=== PATIENT | male | born 1935 | race Two or more races ===

== ENCOUNTER 2024-03-08 20:45 | Inpatient (IN) | payer OTHER ==
[~2024-03-08] VITALS: Ht 167.6 cm; Wt 72.6 kg
[2024-03-09 00:27] LABS: HEMATOCRIT 41.3 % (39.0-48.0); HEMOGLOBIN 13.7 g/dL (13-16.00); MEAN CELL VOLUME 80.8 fL (80.0-100.00); MEAN CORPUSCULAR HEMOGLOBIN 26.9 pg (27.00-32.0); MEAN CORPUSCULAR HGB CONC 33.3 g/dl (32.0-36.0); RED BLOOD COUNT 5.11 M/uL (4.00-6.00); RED CELL DISTRIBUTION WIDTH 14.4 % (11.5-14.5)
[2024-03-09 00:30] LABS: PLATELET COUNT 128 K/uL (150-450)
[2024-03-09 00:31] LABS: ERYTHROCYTE SEDIMENTATION RATE 56 mm/hr
[2024-03-09 00:42] LABS: INR 1.06; PARTIAL THROMBOPLASTIN TIME 33.8 SECONDS (22.0-34.0); PROTHROMBIN TIME 11.1 SECONDS (9.0-11.5)
[2024-03-09 00:46] LABS: ALBUMIN 2.8 gm/dL (3.4-5.0); BILIRUBIN TOTAL 0.5 mg/dL (0.3-1.2); CALCIUM 8.6 mg/dL (8.5-10.1); CREATININE SERUM 1.15 mg/dL (0.70-1.30); GFR 60.15; POTASSIUM 4.44 mEq/L (3.5-5.1); TOTAL PROTEIN 6.8 gm/dL (6.4-8.2)
[2024-03-09 00:49] LABS: PH,URINE 5.5 (5.0-8.0); URINE APPEARANCE Clear; URINE BILIRRUBIN Negative (NEGATIVE); URINE BLOOD Negative; URINE COLOR Dark Yellow; URINE GLUCOSE Negative (NEGATIVE); URINE LEUKOCYTE Negative; URINE NITRATE Negative; URINE PROTEIN 30 (NEGATIVE); URINE UROBILINOGEN 0.2 E.U./dl
[2024-03-09 00:52] LABS: URINE BACTERIA 13.8 uL (0.0-1933); URINE EPITHELIAL CELLS 4.7 uL (0.0-38.8); URINE RBC 13.8 uL (0.0-20.8)
[2024-03-09 01:05] LABS: C-REACTIVE PROTEIN 5.67 MG/DL (0.00-0.29)
[2024-03-09 02:39] LABS: ABG PH 7.466 (7.35-7.45); ABG pCO2 34.5 mmHg (35-45); BASE EXCESS 1.1 mmol/l; BICARBONATE 24.3 mmol/l (23-25); Tco2 25.4 mmol/l; allen test SATISFACTORY; o2 21 %; puncture site RADIAL RIGHT
[2024-03-09] MEDS ORDERED: VASOTEC20 MG PO (02:42)
[2024-03-09] MEDS ORDERED: LEVALBUTEROL HCL 1.25 MG/3 ML SOLUTION IH SCH ×3 (05:45→17:00)
[2024-03-09] MEDS ORDERED: LEVALBUTEROL HCL 1.25 MG/3 ML SOLUTION IH ONE ×3 (05:59→08:31)
[2024-03-09] MEDS ORDERED: LEVALBUTEROL HCL 1.25 MG/3 ML SOLUTION IH STA (07:24)
[2024-03-09] MEDS ORDERED: METHYLPREDNISOLONE SOD SUCC 125 MG VIAL IV STA (07:25)
[2024-03-09] MEDS ORDERED: METHYLPREDNISOLONE SOD SUCC 40 MG VIAL ONE (07:30)
[2024-03-09] MEDS ORDERED: DEXAMETHASONE SODIUM PHOSPHATE 4 MG/ML VIAL IV SCH (11:07)
[2024-03-09] MEDS ORDERED: ENOXAPARIN SODIUM 40 MG/0.4 ML SYRINGE SUBCUTANEO SCH (11:07)
[2024-03-09] MEDS ORDERED: ZINC SULFATE 220 MG CAPSULE PO SCH (11:08)
[2024-03-09] MEDS ORDERED: FAMOTIDINE/PF 20 MG/10 ML SYRINGE IV PUSH SCH (11:12)
[2024-03-09] MEDS ORDERED: ENALAPRIL MALEATE 20 MG TABLET PO SCH (11:13)
[2024-03-09] MEDS ORDERED: ENALAPRILAT DIHYDRATE 1.25 MG/ML VIAL IV PRN (11:15)
[2024-03-09] MEDS ORDERED: AZITHROMYCIN 500 MG in DEXTROSE 5 % IN WATER 250 ML IV SCH (12:00)
[2024-03-09] MEDS ORDERED: REMDESIVIR 100 MG VIAL IV ONE (13:00)
[2024-03-09] MEDS ORDERED: ASCORBIC ACID 500 MG TABLET PO SCH (13:00)
[2024-03-09] MEDS ORDERED: DEXAMETHASONE SODIUM PHOSPHATE 4 MG/ML VIAL ONE (14:39)
[2024-03-09] MEDS ORDERED: AZITHROMYCIN 500 MG VIAL IV ONE (14:40)
[2024-03-09] MEDS ORDERED: CEFTRIAXONE SODIUM 2,000 MG VIAL ONE (14:40)
[2024-03-09] MEDS ORDERED: FAMOTIDINE/PF 20 MG/2 ML VIAL ONE (14:40)
[2024-03-09] MEDS ORDERED: ENOXAPARIN SODIUM 40 MG/0.4 ML SYRINGE SUBCUTANEO ONE (14:40)
[2024-03-09] MEDS ORDERED: ASCORBIC ACID 500 MG TABLET PO ONE (16:44)
[2024-03-09] MEDS ORDERED: CEFTRIAXONE SODIUM 2,000 MG VIAL IV SCH (17:00)
[2024-03-09 17:14] LABS: ALBUMIN 2.6 gm/dL (3.4-5.0); BILIRUBIN TOTAL 0.44 mg/dL (0.3-1.2); CALCIUM 8.7 mg/dL (8.5-10.1); CREATININE SERUM 1.22 mg/dL (0.70-1.30); GFR 56.19; GLOBULINA 4.6 G/DL (2.4-3.5); POTASSIUM 4.64 mEq/L (3.5-5.1); TOTAL PROTEIN 7.2 gm/dL (6.4-8.2)
[2024-03-09 17:17] LABS: C-REACTIVE PROTEIN 5.79 MG/DL (0.00-0.29)
[2024-03-09 17:21] LABS: D DIMER 0.66 MG/L
[2024-03-09 17:47] LABS: FERRITIN 948.7 NG/ML (26-388)
[2024-03-09] MEDS ORDERED: REMDESIVIR 100 MG VIAL IV NR (18:00)
[2024-03-09] MEDS ORDERED: MELATONIN 5 MG TABLET PO SCH (21:00)
[2024-03-10 08:25] LABS: HEMOGLOBIN 13.4 g/dL (13-16.00); MEAN CELL VOLUME 79.3 fL (80.0-100.00); MEAN CORPUSCULAR HEMOGLOBIN 26.5 pg (27.00-32.0); MEAN CORPUSCULAR HGB CONC 33.4 g/dl (32.0-36.0); PLATELET COUNT 144 K/uL (150-450); RED BLOOD COUNT 5.05 M/uL (4.00-6.00); RED CELL DISTRIBUTION WIDTH 14.6 % (11.5-14.5)
[2024-03-10 09:05] LABS: ALBUMIN 2.6 gm/dL (3.4-5.0); BILIRUBIN TOTAL 0.33 mg/dL (0.3-1.2); CALCIUM 8.4 mg/dL (8.5-10.1); CREATININE SERUM 1.01 mg/dL (0.70-1.30); GFR 69.88; GLOBULINA 3.6 G/DL (2.4-3.5); POTASSIUM 4.28 mEq/L (3.5-5.1); TOTAL PROTEIN 6.2 gm/dL (6.4-8.2)
[2024-03-10] MEDS ORDERED: REMDESIVIR 100 MG VIAL IV SCH (17:00)
[2024-03-10] MEDS ORDERED: FAMOTIDINE/PF 20 MG/2 ML VIAL IV SCH (21:00)
[2024-03-11 07:07] LABS: MEAN CORPUSCULAR HEMOGLOBIN 26.3 pg (27.00-32.0); MEAN CORPUSCULAR HGB CONC 33.3 g/dl (32.0-36.0); PLATELET COUNT 209 K/uL (150-450); RED BLOOD COUNT 4.93 M/uL (4.00-6.00); RED CELL DISTRIBUTION WIDTH 14.5 % (11.5-14.5)
[2024-03-11 07:50] LABS: ALBUMIN 2.6 gm/dL (3.4-5.0); BILIRUBIN TOTAL 0.44 mg/dL (0.3-1.2); C-REACTIVE PROTEIN 2.72 MG/DL (0.00-0.29); CALCIUM 8.1 mg/dL (8.5-10.1); CREATININE SERUM 0.96 mg/dL (0.70-1.30); FERRITIN 763.3 NG/ML (26-388); GFR 74.09; GLOBULINA 3.5 G/DL (2.4-3.5); POTASSIUM 4.66 mEq/L (3.5-5.1); TOTAL PROTEIN 6.1 gm/dL (6.4-8.2)
[2024-03-11 07:53] LABS: FERRITIN 754.3 NG/ML (26-388)
[2024-03-11 19:30] LABS: ABG PH 7.477 (7.35-7.45); ABG pCO2 33.2 mmHg (35-45)
[2024-03-11 19:31] LABS: ABG PO2 77.6 mmHg (80-100); BASE EXCESS 1.2 mmol/l; SaO2 96.3 %; allen test SATISFACTORY; o2 36 %; puncture site RADIAL RIGHT
[2024-03-13 08:51] LABS: HEMATOCRIT 38.8 % (39.0-48.0); HEMOGLOBIN 13.2 g/dL (13-16.00); MEAN CELL VOLUME 79.7 fL (80.0-100.00); MEAN CORPUSCULAR HEMOGLOBIN 27.1 pg (27.00-32.0); PLATELET COUNT 235 K/uL (150-450); RED BLOOD COUNT 4.86 M/uL (4.00-6.00); RED CELL DISTRIBUTION WIDTH 14.3 % (11.5-14.5)
[2024-03-13 09:32] LABS: ALBUMIN 2.4 gm/dL (3.4-5.0); BILIRUBIN TOTAL 0.45 mg/dL (0.3-1.2); CALCIUM 8.3 mg/dL (8.5-10.1); CREATININE SERUM 0.74 mg/dL (0.70-1.30); GFR 100.05; GLOBULINA 3.1 G/DL (2.4-3.5); POTASSIUM 4.55 mEq/L (3.5-5.1); TOTAL PROTEIN 5.5 gm/dL (6.4-8.2)
[2024-03-13 09:44] LABS: C-REACTIVE PROTEIN 1.33 MG/DL (0.00-0.29)
[2024-03-14 06:39] LABS: HEMATOCRIT 40.4 % (39.0-48.0); HEMOGLOBIN 13.5 g/dL (13-16.00); MEAN CELL VOLUME 80.2 fL (80.0-100.00); MEAN CORPUSCULAR HEMOGLOBIN 26.9 pg (27.00-32.0); MEAN CORPUSCULAR HGB CONC 33.5 g/dl (32.0-36.0); PLATELET COUNT 296 K/uL (150-450); RED BLOOD COUNT 5.03 M/uL (4.00-6.00); RED CELL DISTRIBUTION WIDTH 14.4 % (11.5-14.5)
[2024-03-14 07:07] LABS: ALBUMIN 2.6 gm/dL (3.4-5.0); BILIRUBIN TOTAL 0.54 mg/dL (0.3-1.2); CALCIUM 8.2 mg/dL (8.5-10.1); CREATININE SERUM 0.79 mg/dL (0.70-1.30); GFR 92.78; GLOBULINA 3.1 G/DL (2.4-3.5); POTASSIUM 4.5 mEq/L (3.5-5.1); TOTAL PROTEIN 5.7 gm/dL (6.4-8.2)
[2024-03-14 10:23] LABS: ABG PH 7.479 (7.35-7.45); ABG pCO2 32.3 mmHg (35-45)
[2024-03-14 10:24] LABS: ABG PO2 58.9 mmHg (80-100); BASE EXCESS 0.8 mmol/l; BICARBONATE 23.5 mmol/l (23-25); SaO2 92.2 %; Tco2 24.5 mmol/l; allen test SATISFACTORY; o2 21 %; puncture site RADIAL RIGHT
[2024-03-14] MEDS ORDERED: FAMOtidine 20 MG TABLET PO SCH (21:00)
[2024-03-15 07:56] LABS: HEMATOCRIT 40.2 % (39.0-48.0); HEMOGLOBIN 13.4 g/dL (13-16.00); MEAN CELL VOLUME 79.1 fL (80.0-100.00); MEAN CORPUSCULAR HEMOGLOBIN 26.4 pg (27.00-32.0); MEAN CORPUSCULAR HGB CONC 33.4 g/dl (32.0-36.0); PLATELET COUNT 334 K/uL (150-450); RED BLOOD COUNT 5.09 M/uL (4.00-6.00); RED CELL DISTRIBUTION WIDTH 14.3 % (11.5-14.5)
[2024-03-15 08:11] LABS: ALBUMIN 2.6 gm/dL (3.4-5.0); BILIRUBIN TOTAL 0.58 mg/dL (0.3-1.2); CALCIUM 8.7 mg/dL (8.5-10.1); CREATININE SERUM 0.82 mg/dL (0.70-1.30); GFR 88.87; GLOBULINA 3.2 G/DL (2.4-3.5); POTASSIUM 4.62 mEq/L (3.5-5.1); TOTAL PROTEIN 5.8 gm/dL (6.4-8.2)
[2024-03-15 08:12] LABS: FERRITIN 737.6 NG/ML (26-388)
[2024-03-15 14:15] LABS: ABG PH 7.473 (7.35-7.45); ABG PO2 59.6 mmHg (80-100); ABG pCO2 33.3 mmHg (35-45); BASE EXCESS 0.9 mmol/l; BICARBONATE 23.9 mmol/l (23-25); SaO2 92.4 %; Tco2 24.9 mmol/l; allen test SATISFACTORY; o2 21 %; puncture site RADIAL RIGHT
[2024-03-15] MEDS ORDERED: LEVALBUTER0.63 MG/3 IH (17:01)
[2024-03-15] MEDS ORDERED: DEXAMETHASONE6 MG PO (17:01)
== END 2024-03-15 17:58 | disposition home or self-care (01) | DRG 177 ==
LOC: ER 20:46 → MEDJ 03-09 12:12 → SEC-K 03-09 12:12 → MEDJ 03-09 12:38
PROVIDERS: Emergency Medicine; Internal Medicine; Internal Medicine Infectious Disease; ADMIT Internal Medicine; ATTEND Internal Medicine
PROC: XW033E5 Introduction of Remdesivir Anti-infective into Peripheral Vein, Percutaneous Approach, New Technology Group 5 (ICD-10-PCS; principal; 2024-03-09)
PROC: BW24ZZZ Computerized Tomography (CT Scan) of Chest and Abdomen (ICD-10-PCS; 2024-03-09)
PROC: 4A12X4Z Monitoring of Cardiac Electrical Activity, External Approach (ICD-10-PCS; 2024-03-09)
PROC: BW24ZZZ Computerized Tomography (CT Scan) of Chest and Abdomen (ICD-10-PCS; 2024-03-14)
DX: U07.1 COVID-19 (principal); J12.82 Pneumonia due to coronavirus disease 2019; N40.0 Benign prostatic hyperplasia without lower urinary tract symptoms; G80.9 Cerebral palsy, unspecified; I10 Essential (primary) hypertension

== ENCOUNTER 2025-05-31 09:37 | Inpatient (IN) | payer OTHER ==
[~2025-05-31] VITALS: Ht 152.4 cm; Wt 63.5 kg
[~2025-05-31 09:37] MED LIST: DEXAMETHASONE6 MG PO; LEVALBUTER0.63 MG/3 IH; VASOTEC20 MG PO
--- NOTE | 2025-05-31 09:51 | NUR ---
PTE ALERTA Y ORIENTADO EN COMPANIA DE ESPOSA. LA MASMA REFIERE QUE FUE ENVIA POR EL DR. MORRIS POR LABORATORIO DE CREATINE ELEVADO. SE MIDEN S/V Y SE UBICA.
--- NOTE | 2025-05-31 11:38 | NUR ---
PTE EVALUADA POR LA QUIEN ORDENA TRATAMIENTO Y SE EJECUTA POR MS.DAKOTA QUIEN ORDENA TRATAMIENTO LA CUAL; SE EJECUTA. SE MANTIENE BAJO OBSERVACION.
[2025-05-31 11:45] LABS: BASO % 0.6 % (0.1-1.2); EOS # 0.25 (0.04-0.54); EOS % 3.1 % (0.7-7.0); LYMPH # 0.93 (1.18-3.74); LYMPH % 11.6 % (19.3-53.1); MEAN PLATELET VOLUME 10.70 fl (9.4-12.4); MONO # 1.06 (0.24-0.82); NEUT # 5.70 (1.56-6.13); NEUT % 71.0 % (34.0-71.1); RED CELL DISTRIBUTION WIDTH 12.7 % (11.6-14.4)
[2025-05-31 11:53] LABS: MONO % 13.2 % (4.7-12.5)
[2025-05-31 12:15] LABS: INR 1.06
--- NOTE | 2025-05-31 12:21 | NUR ---
SE COLOCA EGAN LUKAS ORDEN MEDICA BAJO MEDIDAS ASEPTICAS Y ESTERIL. AL MOMENTO SONDA ORINARIA CON EGRESO COLOR AMARILLENTA MICHAEL.
[2025-05-31 12:49] LABS: URINE APPEARANCE Clear; URINE BILIRRUBIN Negative (NEGATIVE); URINE BLOOD Negative; URINE COLOR Yellow; URINE GLUCOSE Negative (NEGATIVE); URINE KETONE Negative (NEGATIVE); URINE LEUKOCYTE Negative; URINE NITRATE Negative; URINE PROTEIN 30 (NEGATIVE); URINE UROBILINOGEN 0.2 E.U./dl
[2025-05-31 12:52] LABS: URINE EPITHELIAL CELLS 2.3 uL (0.0-38.8); URINE WBC 2.9 uL (0.0-23.2)
[2025-05-31 13:00] LABS: ALT/SGPT 7.0 U/L (12-78); AST/SGOT 9.0 U/L (15-37); BILIRUBIN TOTAL 0.34 mg/dL (0.3-1.2); GFR 9.7; GLOBULINA 3.3 G/DL (2.4-3.5); GLUCOSE FASTING 111.0 mg/dL (65-100); PHOSPHOKINASE CREATININE 36.0 U/L (39-308)
[2025-05-31 13:01] LABS: BUN CREA RATIO 16.0 (7.0-25.0); OSMOLALITY SERUM 311.0 MOSM/KG (275-295)
[2025-05-31 13:02] LABS: CREATININE SERUM 5.57 mg/dL (0.70-1.30)
[2025-05-31 13:05] LABS: URINE BACTERIA 1.1 uL (0.0-1933); URINE CAST 0.14 uL (0.0-1.40); URINE RBC 1.1 uL (0.0-20.8)
[2025-05-31] MEDS ORDERED: 0.9 % SODIUM CHLORIDE 1,000 ML IV ONE ×2 (13:30→18:00)
[2025-05-31] MEDS ORDERED: IPRATROPIUM BROMIDE 0.5 MG/2.5 ML AMPUL.NEB IH SCH (17:43)
[2025-05-31] MEDS ORDERED: 0.9 % SODIUM CHLORIDE 1,000 ML IV SCH (17:45)
[2025-05-31] MEDS ORDERED: TAMSULOSIN HCL 0.4 MG CAP PO SCH (17:50)
[2025-05-31] MEDS ORDERED: FAMOTIDINE/PF 20 MG in 0.9 % SODIUM CHLORIDE 8 ML IV PUSH SCH (17:50)
[2025-05-31] MEDS ORDERED: SODIUM POLYSTYRENE SULFONATE 15 G/4 TSP TSP PO SCH (17:51)
[2025-05-31] MEDS ORDERED: CALCIUM GLUCONATE 100 MG/ML VIAL IV ONE (18:00)
[2025-05-31] MEDS ORDERED: DEXTROSE 50 % IN WATER 0.5 G/ML VIAL IV ONE ×2 (18:00→18:45)
[2025-05-31] MEDS ORDERED: INSULIN REGULAR, HUMAN 1,000 UNIT/10 ML UNITS IV ONE (18:00)
[2025-05-31] MEDS ORDERED: CALCIUM GLUCONATE 100 MG/ML VIAL ONE (18:45)
[2025-05-31] MEDS ORDERED: TAMSULOSIN HCL 0.4 MG CAP PO ONE (18:45)
[2025-05-31] MEDS ORDERED: INSULIN REGULAR, HUMAN 1,000 UNIT/10 ML UNITS ONE (18:46)
[2025-05-31] MEDS ORDERED: FAMOTIDINE/PF 20 MG/2 ML VIAL ONE (18:46)
[2025-05-31] MEDS ORDERED: SODIUM POLYSTYRENE SULFONATE 15 G/4 TSP TSP ONE (19:16)
[2025-05-31 19:20] VITALS: BP 128/65; O2SAT 100
[2025-05-31 23:18] VITALS: BP 113/71; O2SAT 100
[2025-06-01 03:25] VITALS: BP 101/55; O2SAT 100
[2025-06-01 07:00] LABS: GLUCOSE FASTING 88.0 mg/dL (65-100); OSMOLALITY SERUM 313.0 MOSM/KG (275-295); TSH 2.58 uIU/mL (0.358-3.74)
[2025-06-01 07:14] LABS: BUN CREA RATIO 15.0 (7.0-25.0); CREATININE SERUM 5.15 mg/dL (0.70-1.30); GFR 10.61
[2025-06-01] MEDS ORDERED: SODIUM CHLORIDE 0.45 % 1,000 ML IV SCH (07:30)
[2025-06-01] MEDS ORDERED: SODIUM POLYSTYRENE SULFONATE 30G/8 TSP PO SCH (08:00)
[2025-06-01 08:51] VITALS: BP 159/52
[2025-06-01] MEDS ORDERED: ENOXAPARIN SODIUM 30 MG/0.3 ML SYRINGE SUBCUTANEO SCH (09:00)
[2025-06-01 18:33] VITALS: BP 119/66
[2025-06-02 03:45] VITALS: BP 95/69; O2SAT 95
[2025-06-02 06:44] LABS: BASO % 0.8 % (0.1-1.2); EOS # 0.54 (0.04-0.54); EOS % 5.3 % (0.7-7.0); LYMPH # 1.29 (1.18-3.74); LYMPH % 12.7 % (19.3-53.1); MEAN PLATELET VOLUME 11.50 fl (9.4-12.4); MONO # 1.43 (0.24-0.82); NEUT # 6.75 (1.56-6.13); NEUT % 66.7 % (34.0-71.1); RED CELL DISTRIBUTION WIDTH 12.8 % (11.6-14.4)
[2025-06-02 07:01] LABS: MONO % 14.1 % (4.7-12.5)
[2025-06-02 07:44] LABS: GLUCOSE FASTING 85.0 mg/dL (65-100); OSMOLALITY SERUM 310.0 MOSM/KG (275-295)
[2025-06-02 07:48] LABS: BUN CREA RATIO 14.0 (7.0-25.0); CREATININE SERUM 4.61 mg/dL (0.70-1.30); GFR 12.06
[2025-06-02 07:49] LABS: PROSTATIC SPECIFIC ANTIGEN 32.0 NG/ML (0.010-4.00)
[2025-06-02 09:21] VITALS: BP 132/67; O2SAT 97
[2025-06-02 16:00] VITALS: BP 127/66; O2SAT 100
[2025-06-02] MEDS ORDERED: EPOETIN ALFA-EPBX 10,000 UNIT/ML VIAL (Retacrit) SUBCUTANEO SCH (17:00)
[2025-06-03 02:52] VITALS: BP 120/51; O2SAT 95
[2025-06-03 07:37] LABS: BASO % 0.4 % (0.1-1.2); EOS # 0.45 (0.04-0.54); EOS % 5.0 % (0.7-7.0); LYMPH # 1.18 (1.18-3.74); LYMPH % 13.0 % (19.3-53.1); MEAN PLATELET VOLUME 11.40 fl (9.4-12.4); MONO # 1.21 (0.24-0.82); NEUT # 6.15 (1.56-6.13); NEUT % 67.9 % (34.0-71.1); RED CELL DISTRIBUTION WIDTH 12.5 % (11.6-14.4)
[2025-06-03 07:42] LABS: MONO % 13.4 % (4.7-12.5)
[2025-06-03 08:09] LABS: GLUCOSE FASTING 86.0 mg/dL (65-100); OSMOLALITY SERUM 298.0 MOSM/KG (275-295)
[2025-06-03 08:43] LABS: BUN CREA RATIO 14.0 (7.0-25.0); GFR 13.85
[2025-06-03 09:31] LABS: CREATININE SERUM 4.09 mg/dL (0.70-1.30)
[2025-06-03 09:32] VITALS: BP 128/66; O2SAT 100
[2025-06-03] MEDS ORDERED: MORPHINE SULFATE 2 MG/ML CARTRIDGE IV STA (10:17)
[2025-06-03 18:31] VITALS: BP 115/61; O2SAT 100
[2025-06-04 02:28] VITALS: BP 117/62; O2SAT 97
[2025-06-04 10:33] VITALS: BP 110/64; O2SAT 98
[2025-06-04 18:57] VITALS: BP 111/62; O2SAT 100
[2025-06-04 21:05] LABS: BASO % 0.6 % (0.1-1.2); EOS # 0.37 (0.04-0.54); EOS % 4.0 % (0.7-7.0); LYMPH # 1.22 (1.18-3.74); LYMPH % 13.1 % (19.3-53.1); MEAN PLATELET VOLUME 11.20 fl (9.4-12.4); MONO # 1.47 (0.24-0.82); NEUT # 6.14 (1.56-6.13); NEUT % 65.9 % (34.0-71.1); RED CELL DISTRIBUTION WIDTH 12.9 % (11.6-14.4)
[2025-06-04 21:07] LABS: MONO % 15.8 % (4.7-12.5)
[2025-06-05 02:28] VITALS: BP 103/44; O2SAT 99
[2025-06-05 09:28] VITALS: BP 124/60; O2SAT 99
[2025-06-05 12:16] LABS: ALT/SGPT 8.0 U/L (12-78); AST/SGOT 12.0 U/L (15-37); BILIRUBIN TOTAL 0.37 mg/dL (0.3-1.2); BUN CREA RATIO 15.0 (7.0-25.0); CREATININE SERUM 3.37 mg/dL (0.70-1.30); GFR 17.31; GLOBULINA 3.2 G/DL (2.4-3.5); GLUCOSE FASTING 127.0 mg/dL (65-100); OSMOLALITY SERUM 300.0 MOSM/KG (275-295)
[2025-06-05] MEDS ORDERED: LACTULOSE 20 G/30 ML BLIST.PACK PO STA (14:20)
[2025-06-05] MEDS ORDERED: MAGNESIUM HYDROXIDE 30 ML BLIST.PACK PO STA (14:20)
[2025-06-05] MEDS ORDERED: MINERAL OIL 30 ML BLIST.PACK PO STA (14:20)
[2025-06-05 18:25] VITALS: BP 102/63
[2025-06-06 02:31] VITALS: BP 116/61; O2SAT 98
[2025-06-06 11:04] VITALS: BP 117/65; O2SAT 98
[2025-06-06 16:45] VITALS: BP 134/78
[2025-06-07 02:11] VITALS: BP 93/55; O2SAT 100
[2025-06-07 06:50] LABS: BASO % 0.5 % (0.1-1.2); EOS # 0.60 (0.04-0.54); EOS % 6.0 % (0.7-7.0); LYMPH # 1.40 (1.18-3.74); LYMPH % 13.9 % (19.3-53.1); MEAN PLATELET VOLUME 10.80 fl (9.4-12.4); MONO # 1.64 (0.24-0.82); NEUT # 6.32 (1.56-6.13); NEUT % 62.6 % (34.0-71.1); RED CELL DISTRIBUTION WIDTH 12.8 % (11.6-14.4)
[2025-06-07 06:59] LABS: MONO % 16.3 % (4.7-12.5)
[2025-06-07 07:14] LABS: BUN CREA RATIO 15.0 (7.0-25.0); CREATININE SERUM 3.02 mg/dL (0.70-1.30); GFR 19.65; GLUCOSE FASTING 95.0 mg/dL (65-100); OSMOLALITY SERUM 296.0 MOSM/KG (275-295)
[2025-06-07 09:19] VITALS: BP 159/62; O2SAT 98
[2025-06-07] MEDS ORDERED: TAMS0.4C PO (12:32)
[2025-06-07] MEDS ORDERED: IPRATROPIU0.2 MG/1 M IH (12:32)
[2025-06-07] MEDS ORDERED: VASOTEC20 MG PO (12:33)
[2025-06-07] MEDS ORDERED: MACROBID 100 M100 MG PO (12:34)
== END 2025-06-07 13:32 | disposition home or self-care (01) | DRG 684 ==
LOC: ER 09:37 → MEDJ 19:32
PROVIDERS: General Practice; Internal Medicine Nephrology; ADMIT Internal Medicine; ATTEND Internal Medicine
PROC: BW21ZZZ Computerized Tomography (CT Scan) of Abdomen and Pelvis (ICD-10-PCS; principal; 2025-05-31)
PROC: BT4JZZZ Ultrasonography of Kidneys and Bladder (ICD-10-PCS; 2025-05-31)
PROC: B24BYZZ Ultrasonography of Heart with Aorta using Other Contrast (ICD-10-PCS; 2025-05-31)
PROC: 30233N1 Transfusion of Nonautologous Red Blood Cells into Peripheral Vein, Percutaneous Approach (ICD-10-PCS; 2025-06-04)
PROC: BW40ZZZ Ultrasonography of Abdomen (ICD-10-PCS; 2025-06-05)
PROC: BW4GZZZ Ultrasonography of Pelvic Region (ICD-10-PCS; 2025-06-05)
DX: N17.9 Acute kidney failure, unspecified (principal); N28.9 Disorder of kidney and ureter, unspecified; I10 Essential (primary) hypertension; N32.0 Bladder-neck obstruction; E87.5 Hyperkalemia; D64.9 Anemia, unspecified; R63.0 Anorexia; G80.9 Cerebral palsy, unspecified

== ENCOUNTER 2025-06-16 11:53 | Inpatient (IN) | payer OTHER ==
[~2025-06-16] VITALS: Ht 162.6 cm; Wt 63.5 kg
[~2025-06-16 11:53] MED LIST changes: +IPRATROPIU0.2 MG/1 M IH; +MACROBID 100 M100 MG PO; +TAMS0.4C PO
--- NOTE | 2025-06-16 12:21 | NUR ---
PACIENTE ALERTA ACOMPANADO DE HUIZAR ESPOSA QUIEN REFIERE EL PACIENTE FUE DADO DE RITA EL 2024 CON LA SONDA URINARIA. ESTA VERBALIZA TRAER A PTE PARA DARLE SEGUIMIENTO AL MISMO. ACOMPANANTYE REFIERE QUE NO MCCULLOUGH PRESENTADO FIEBRE. SE MIDEN S/V Y SE UBICA EN CELESTE DE ESPERA.
[2025-06-16] MEDS ORDERED: 0.9 % SODIUM CHLORIDE 1,000 ML IV ONE (13:45)
[2025-06-16 14:09] LABS: BASO % 0.6 % (0.1-1.2); EOS # 0.23 (0.04-0.54); EOS % 1.3 % (0.7-7.0); LYMPH # 1.32 (1.18-3.74); LYMPH % 7.4 % (19.3-53.1); MEAN PLATELET VOLUME 10.10 fl (9.4-12.4); MONO # 1.89 (0.24-0.82); MONO % 10.5 % (4.7-12.5); NEUT # 13.96 (1.56-6.13); NEUT % 77.7 % (34.0-71.1); RED CELL DISTRIBUTION WIDTH 13.3 % (11.6-14.4)
--- NOTE | 2025-06-16 14:33 | NUR ---
SE ORIENTA PTE SOBRE TX MEDICO Y EL MISMO REFIERE ENTENDER Y ACEPTAR. SE CANALIZA Y SE COLECTAN MUESTRAS DE LAB BAJO MEDIDAS ASEPTICAS, SE CAMBIA EGAN Y SE COLOCA BLAINE NUEVO BAJO MEDIDAS ESTERILES. SE HACE ENTREGA DE ENVASE PARA UA.
[2025-06-16 14:36] LABS: ALT/SGPT 13.0 U/L (12-78); AST/SGOT 13.0 U/L (15-37); BILIRUBIN TOTAL 0.34 mg/dL (0.3-1.2); CREATININE SERUM 3.56 mg/dL (0.70-1.30); GFR 16.25; GLOBULINA 4.5 G/DL (2.4-3.5); GLUCOSE FASTING 142.0 mg/dL (65-100)
[2025-06-16 14:37] LABS: BUN CREA RATIO 30.0 (7.0-25.0); OSMOLALITY SERUM 310.0 MOSM/KG (275-295)
[2025-06-16 15:56] LABS: URINE APPEARANCE Cloudy; URINE BILIRRUBIN Negative (NEGATIVE); URINE BLOOD Large; URINE COLOR Yellow; URINE GLUCOSE Negative (NEGATIVE); URINE KETONE Negative (NEGATIVE); URINE LEUKOCYTE Small; URINE NITRATE Negative; URINE UROBILINOGEN 0.2 E.U./dl
[2025-06-16 15:57] LABS: URINE BACTERIA 691.1 uL (0.0-1933); URINE CAST 11.29 uL (0.0-1.40); URINE EPITHELIAL CELLS 32.4 uL (0.0-38.8); URINE RBC 5051.0 uL (0.0-20.8); URINE WBC 423.2 uL (0.0-23.2)
[2025-06-16] MEDS ORDERED: INSULIN REGULAR, HUMAN 1,000 UNIT/10 ML UNITS IV ONE (16:00)
[2025-06-16] MEDS ORDERED: CALCIUM GLUCONATE 100 MG/ML VIAL IV ONE (16:00)
[2025-06-16] MEDS ORDERED: DEXTROSE 50 % IN WATER 0.5 G/ML VIAL IV ONE ×4 (16:00→19:00)
[2025-06-16] MEDS ORDERED: CEFTRIAXONE SODIUM 1,000 MG VIAL IV ONE (16:00)
[2025-06-16 16:08] LABS: URINE PROTEIN 300 (NEGATIVE)
[2025-06-16 16:09] LABS: TYPE CELLS RENAL TUBULAR
[2025-06-16] MEDS ORDERED: CEFTRIAXONE SODIUM 1,000 MG VIAL ONE (16:55)
[2025-06-16] MEDS ORDERED: CALCIUM GLUCONATE 100 MG/ML VIAL ONE (16:55)
--- NOTE | 2025-06-16 17:32 | NUR ---
PACIENTE REEVALUADA POR ASSEMBLER FLEXIBLE LEADS TOSTE QUIEN ORDENA NUEVO TRATAMIENTO MEDICO. SE LE ORIENTA A PACIENTE Y FAMILIAR SOBRE EL MISMO Y REFIEREN ENTENDER. SE LE CONECTA A PACIENTE A MONITOR CARDIACO Y OXIMETRIA CONTINUA. SE LE REALIZA EKG, SE LE PRESENTA A ASSEMBLER FLEXIBLE LEADS, SE LE CANALIZA A PACIENTE EN ANTEBRAZO ETHAN CON ANGIO #20 EL CUAL SE ENCUENTRA PATENTE, ANETTE DE EDEMA Y ERITEMA. SE LE ADMINISTRAN MEDICAMENTOS LUKAS ORDEN Y BAJO MEDIDAS ASEPTICAS. SE LE REALIZA DXT, SE DOCUMENTA Y SE DOCUMENTAN S/V. SE MANTIENE BAJO OBSERVACION POR CAMBIS EN HUIZAR CONDICION.
[2025-06-16] MEDS ORDERED: NOREPINEPHRINE BITARTRATE 1 MG/ML AMPUL IV ONE (18:33)
[2025-06-16] MEDS ORDERED: PIPERACILLIN/TAZOBACTAM SODIUM 3.375 GM in 0.9 % SODIUM CHLORIDE 100 ML IV SCH ×2 (18:40→21:00)
[2025-06-16] MEDS ORDERED: PIPERACILLIN/TAZOBACTAM SODIUM 3.375 GM VIAL IV ONE (18:55)
[2025-06-16] MEDS ORDERED: NOREPINEPHRINE BITARTRATE 8 MG in DEXTROSE 5 % IN WATER 250 ML IV SCH (19:00)
[2025-06-16] MEDS ORDERED: 0.9 % SODIUM CHLORIDE 1,000 ML IV SCH (19:00)
[2025-06-16] MEDS ORDERED: FAMOTIDINE/PF 20 MG in 0.9 % SODIUM CHLORIDE 8 ML IV PUSH SCH (19:06)
[2025-06-16 19:33] VITALS: BP 87/48
[2025-06-16] MEDS ORDERED: FAMOTIDINE/PF 20 MG/2 ML VIAL ONE (19:50)
[2025-06-16 19:53] LABS: INR 1.08
[2025-06-16 20:07] LABS: ALT/SGPT 15.0 U/L (12-78); AST/SGOT 11.0 U/L (15-37); BILIRUBIN TOTAL 0.27 mg/dL (0.3-1.2); CREATININE SERUM 3.45 mg/dL (0.70-1.30); GFR 16.85; GLOBULINA 4.4 G/DL (2.4-3.5); GLUCOSE FASTING 157.0 mg/dL (65-100)
[2025-06-16 20:08] LABS: BUN CREA RATIO 29.0 (7.0-25.0); OSMOLALITY SERUM 306.0 MOSM/KG (275-295)
[2025-06-16 20:53] VITALS: BP 101/46; O2SAT 99
[2025-06-16 21:33] LABS: ABG PH 7.367 (7.35-7.45); ABG PO2 111.1 mmHg (80-100); BICARBONATE 13.5 mmol/l (23-25)
[2025-06-16 21:34] LABS: o2 32 %
[2025-06-16 23:12] VITALS: BP 97/66; O2SAT 98
[2025-06-16] MEDS ORDERED: DEXTROSE 5%-WATER 250ML IV.SOLN ONE (23:37)
[2025-06-17] VITALS (23 sets, daily range): BP systolic 74–142; BP diastolic 41–91; O2SAT 97–100
[2025-06-17] MEDS ORDERED: NOREPINEPHRINE BITARTRATE 1 MG/ML AMPUL IV ONE (10:08)
[2025-06-17] MEDS ORDERED: HYDROCORTISONE SODIUM SUCC/PF 50 MG/ML ML IV SCH (17:00)
[2025-06-17] MEDS ORDERED: SODIUM POLYSTYRENE SULFONATE 15 G/4 TSP TSP PO SCH (17:00)
[2025-06-17] MEDS ORDERED: RINGERS SOLUTION,LACTATED 1,000 ML IV SCH (17:00)
[2025-06-17] MEDS ORDERED: NOREPINEPHRINE BITARTRATE 4 MG in DEXTROSE 5 % IN WATER 250 ML IV SCH (19:00)
[2025-06-17] MEDS ORDERED: MEROPENEM 500 MG/VIAL VIAL IV SCH (21:00)
[2025-06-17 21:07] LABS: ALT/SGPT 13.0 U/L (12-78); AST/SGOT 14.0 U/L (15-37); BILIRUBIN TOTAL 0.57 mg/dL (0.3-1.2); CREATININE SERUM 3.44 mg/dL (0.70-1.30); GFR 16.91; GLOBULINA 3.4 G/DL (2.4-3.5); GLUCOSE FASTING 193.0 mg/dL (65-100)
[2025-06-17 21:09] LABS: BUN CREA RATIO 25.0 (7.0-25.0); OSMOLALITY SERUM 307.0 MOSM/KG (275-295)
[2025-06-17] MEDS ORDERED: DEXTROSE 50 % IN WATER 0.5 G/ML VIAL IV ONE (21:14)
[2025-06-17] MEDS ORDERED: DEXTROSE 50 % IN WATER 0.5 G/ML DISP.SYRIN IV STA (21:19)
[2025-06-17] MEDS ORDERED: SODIUM POLYSTYRENE SULFONATE 30G/8 TSP PO STA (21:20)
[2025-06-17] MEDS ORDERED: SODIUM POLYSTYRENE SULFONATE 30G/8 TSP PO ONE (21:30)
[2025-06-17] MEDS ORDERED: INSULIN REGULAR, HUMAN 1,000 UNIT/10 ML UNITS IV ONE (21:30)
[2025-06-18] VITALS (21 sets, daily range): BP systolic 95–130; BP diastolic 43–111; O2SAT 98–100
[2025-06-18] MEDS ORDERED: SODIUM POLYSTYRENE SULFONATE 30G/8 TSP PO SCH
[2025-06-18 07:27] LABS: BASO % 0.4 % (0.1-1.2); EOS # 0.07 (0.04-0.54); EOS % 0.4 % (0.7-7.0); LYMPH # 1.30 (1.18-3.74); LYMPH % 6.7 % (19.3-53.1); MEAN PLATELET VOLUME 10.70 fl (9.4-12.4); MONO # 1.56 (0.24-0.82); MONO % 8.0 % (4.7-12.5); NEUT # 16.09 (1.56-6.13); NEUT % 83.0 % (34.0-71.1); RED CELL DISTRIBUTION WIDTH 13.1 % (11.6-14.4)
[2025-06-18 07:40] LABS: ALT/SGPT 11.0 U/L (12-78); AST/SGOT 16.0 U/L (15-37); BILIRUBIN TOTAL 0.47 mg/dL (0.3-1.2); CREATININE SERUM 3.29 mg/dL (0.70-1.30); GFR 17.8; GLOBULINA 3.3 G/DL (2.4-3.5); GLUCOSE FASTING 110.0 mg/dL (65-100)
[2025-06-18 07:45] LABS: BUN CREA RATIO 25.0 (7.0-25.0); OSMOLALITY SERUM 307.0 MOSM/KG (275-295)
[2025-06-18 08:44] LABS: PROSTATIC SPECIFIC ANTIGEN 110.0 NG/ML (0.010-4.00)
[2025-06-19] VITALS (10 sets, daily range): BP systolic 100–126; BP diastolic 50–90; O2SAT 98–100
[2025-06-19 07:20] LABS: BUN CREA RATIO 24.0 (7.0-25.0); CREATININE SERUM 2.7 mg/dL (0.70-1.30); GFR 22.36; GLUCOSE FASTING 98.0 mg/dL (65-100); OSMOLALITY SERUM 311.0 MOSM/KG (275-295)
[2025-06-19] MEDS ORDERED: SODIUM CHLORIDE 0.45 % 1,000 ML IV SCH (10:00)
[2025-06-19] MEDS ORDERED: MAGNESIUM SULFATE IN WATER 50 ML IV SCH (12:00)
[2025-06-20 02:28] VITALS: BP 115/56; O2SAT 97
[2025-06-20 05:11] LABS: BASO % 0.4 % (0.1-1.2); EOS # 0.07 (0.04-0.54); EOS % 0.5 % (0.7-7.0); LYMPH # 1.28 (1.18-3.74); LYMPH % 9.3 % (19.3-53.1); MEAN PLATELET VOLUME 10.20 fl (9.4-12.4); MONO # 1.62 (0.24-0.82); MONO % 11.8 % (4.7-12.5); NEUT # 10.55 (1.56-6.13); NEUT % 76.8 % (34.0-71.1); RED CELL DISTRIBUTION WIDTH 12.9 % (11.6-14.4)
[2025-06-20 05:47] LABS: ALT/SGPT 10.0 U/L (12-78); AST/SGOT 14.0 U/L (15-37); BILIRUBIN TOTAL 0.43 mg/dL (0.3-1.2); BUN CREA RATIO 25.0 (7.0-25.0); CREATININE SERUM 2.16 mg/dL (0.70-1.30); GFR 28.93; GLOBULINA 2.8 G/DL (2.4-3.5); GLUCOSE FASTING 93.0 mg/dL (65-100); OSMOLALITY SERUM 305.0 MOSM/KG (275-295)
[2025-06-20] MEDS ORDERED: POTASSIUM CHLORIDE IN WATER 40 MEQ/100 ML PIGGYBAG IV SCH (09:00)
[2025-06-20 19:10] VITALS: BP 114/62; O2SAT 98
[2025-06-21 02:28] VITALS: BP 91/55; O2SAT 98
[2025-06-21 09:23] VITALS: BP 117/55; O2SAT 97
[2025-06-21 19:07] VITALS: BP 140/61
[2025-06-22 00:38] VITALS: BP 114/50; O2SAT 98
[2025-06-22 06:52] LABS: ALT/SGPT 12.0 U/L (12-78); AST/SGOT 19.0 U/L (15-37); BILIRUBIN TOTAL 0.4 mg/dL (0.3-1.2); BUN CREA RATIO 21.0 (7.0-25.0); CREATININE SERUM 1.89 mg/dL (0.70-1.30); GFR 33.75; GLOBULINA 2.9 G/DL (2.4-3.5); GLUCOSE FASTING 106.0 mg/dL (65-100); OSMOLALITY SERUM 302.0 MOSM/KG (275-295)
[2025-06-22 08:57] VITALS: BP 106/65; O2SAT 97
[2025-06-22 20:15] VITALS: BP 108/70
[2025-06-23 01:22] VITALS: BP 120/57; O2SAT 99
[2025-06-23 06:14] LABS: BASO % 0.4 % (0.1-1.2); EOS # 0.41 (0.04-0.54); EOS % 2.8 % (0.7-7.0); LYMPH # 1.91 (1.18-3.74); LYMPH % 13.3 % (19.3-53.1); MEAN PLATELET VOLUME 10.50 fl (9.4-12.4); MONO # 1.47 (0.24-0.82); MONO % 10.2 % (4.7-12.5); NEUT # 10.31 (1.56-6.13); NEUT % 71.6 % (34.0-71.1); RED CELL DISTRIBUTION WIDTH 12.9 % (11.6-14.4)
[2025-06-23 07:06] LABS: BUN CREA RATIO 22.0 (7.0-25.0); CREATININE SERUM 1.53 mg/dL (0.70-1.30); GFR 43.07; GLUCOSE FASTING 88.0 mg/dL (65-100); OSMOLALITY SERUM 292.0 MOSM/KG (275-295)
[2025-06-23 08:15] VITALS: BP 112/62
[2025-06-23] MEDS ORDERED: MEROPENEM 500 MG/VIAL VIAL IV SCH (09:00)
[2025-06-23] MEDS ORDERED: ENOXAPARIN SODIUM 40 MG/0.4 ML SYRINGE SUBCUTANEO SCH (12:00)
[2025-06-23 17:17] VITALS: BP 116/75
[2025-06-24] VITALS: BP 110/64; O2SAT 98
[2025-06-24 09:05] VITALS: BP 123/60; O2SAT 98
[2025-06-24 16:24] VITALS: BP 95/50; O2SAT 99
[2025-06-25 02:28] VITALS: BP 116/63; O2SAT 100
[2025-06-25 08:47] LABS: BUN CREA RATIO 27.0 (7.0-25.0); CREATININE SERUM 1.43 mg/dL (0.70-1.30); GFR 46.56; GLUCOSE FASTING 94.0 mg/dL (65-100); OSMOLALITY SERUM 294.0 MOSM/KG (275-295)
[2025-06-25 08:57] LABS: PROSTATIC SPECIFIC ANTIGEN 30.4 NG/ML (0.010-4.00)
[2025-06-25 09:07] LABS: BASO % 0.5 % (0.1-1.2); EOS # 0.33 (0.04-0.54); EOS % 2.8 % (0.7-7.0); LYMPH # 1.61 (1.18-3.74); LYMPH % 13.7 % (19.3-53.1); MEAN PLATELET VOLUME 10.80 fl (9.4-12.4); MONO # 1.46 (0.24-0.82); NEUT # 8.06 (1.56-6.13); NEUT % 68.8 % (34.0-71.1); RED CELL DISTRIBUTION WIDTH 12.9 % (11.6-14.4)
[2025-06-25 09:12] LABS: MONO % 12.4 % (4.7-12.5)
[2025-06-25 09:17] VITALS: BP 107/66; O2SAT 99
[2025-06-25 16:27] VITALS: BP 94/55; O2SAT 97
[2025-06-25 16:55] VITALS: BP 105/60
[2025-06-25] MEDS ORDERED: MAGNESIUM SULFATE/D5W 1GM/100ML PIGGYBAG IV ONE (22:00)
[2025-06-26 02:59] VITALS: BP 100/54; O2SAT 98
[2025-06-26 07:42] LABS: BUN CREA RATIO 26.0 (7.0-25.0); CREATININE SERUM 1.33 mg/dL (0.70-1.30); GFR 50.63; GLUCOSE FASTING 90.0 mg/dL (65-100); OSMOLALITY SERUM 292.0 MOSM/KG (275-295)
[2025-06-26 08:27] VITALS: BP 122/58
[2025-06-26 16:05] VITALS: BP 105/57
[2025-06-27 01:32] VITALS: BP 117/62; O2SAT 95
[2025-06-27 07:04] LABS: BASO % 0.7 % (0.1-1.2); EOS # 0.31 (0.04-0.54); EOS % 2.6 % (0.7-7.0); LYMPH # 1.29 (1.18-3.74); LYMPH % 10.7 % (19.3-53.1); MEAN PLATELET VOLUME 10.50 fl (9.4-12.4); MONO # 1.61 (0.24-0.82); NEUT # 8.59 (1.56-6.13); NEUT % 71.2 % (34.0-71.1); RED CELL DISTRIBUTION WIDTH 13.0 % (11.6-14.4)
[2025-06-27 07:09] LABS: MONO % 13.3 % (4.7-12.5)
[2025-06-27 09:05] VITALS: BP 130/60
[2025-06-27 19:02] VITALS: BP 128/68
[2025-06-28 02:18] VITALS: BP 110/62; O2SAT 96
[2025-06-28 09:33] VITALS: BP 107/60
[2025-06-28 17:59] VITALS: BP 128/65
[2025-06-29 03:43] VITALS: BP 111/69; O2SAT 99
[2025-06-29 09:51] VITALS: BP 128/53; O2SAT 99
[2025-06-29 21:07] VITALS: BP 133/62; O2SAT 96
[2025-06-30 02:57] VITALS: BP 112/65; O2SAT 96
[2025-06-30 06:27] LABS: BASO % 0.9 % (0.1-1.2); EOS # 0.30 (0.04-0.54); EOS % 3.2 % (0.7-7.0); LYMPH # 1.44 (1.18-3.74); LYMPH % 15.5 % (19.3-53.1); MEAN PLATELET VOLUME 11.10 fl (9.4-12.4); MONO # 1.54 (0.24-0.82); NEUT # 5.85 (1.56-6.13); NEUT % 62.9 % (34.0-71.1); RED CELL DISTRIBUTION WIDTH 12.7 % (11.6-14.4)
[2025-06-30 06:45] LABS: MONO % 16.6 % (4.7-12.5)
[2025-06-30 07:04] LABS: ALT/SGPT 20.0 U/L (12-78); AST/SGOT 30.0 U/L (15-37); BILIRUBIN TOTAL 0.34 mg/dL (0.3-1.2); BUN CREA RATIO 29.0 (7.0-25.0); CREATININE SERUM 1.38 mg/dL (0.70-1.30); GFR 48.52; GLOBULINA 3.2 G/DL (2.4-3.5); GLUCOSE FASTING 86.0 mg/dL (65-100); OSMOLALITY SERUM 292.0 MOSM/KG (275-295)
[2025-06-30 09:25] VITALS: BP 117/66; O2SAT 99
[2025-06-30] MEDS ORDERED: VASOTEC20 MG PO (13:30)
[2025-06-30] MEDS ORDERED: TAMS0.4C PO (13:30)
[2025-06-30] MEDS ORDERED: MACROBID 100 M100 MG PO (13:31)
[2025-06-30] MEDS ORDERED: XARELTO15 MG PO (13:31)
[2025-06-30 17:43] VITALS: BP 114/60
== END 2025-06-30 23:00 | disposition home or self-care (01) | DRG 698 ==
LOC: ER 11:53 → ICU-2 19:06 → ICU 19:06 → MEDI 06-19 12:28
PROVIDERS: General Practice; Internal Medicine; Internal Medicine Nephrology; ADMIT Internal Medicine; ATTEND Internal Medicine
PROC: BW21ZZZ Computerized Tomography (CT Scan) of Abdomen and Pelvis (ICD-10-PCS; principal; 2025-06-16)
PROC: B54MZZZ Ultrasonography of Right Upper Extremity Veins (ICD-10-PCS; 2025-06-20)
PROC: B020ZZZ Computerized Tomography (CT Scan) of Brain (ICD-10-PCS; 2025-06-28)
PROC: B54MZZZ Ultrasonography of Right Upper Extremity Veins (ICD-10-PCS; 2025-06-28)
DX: N13.9 Obstructive and reflux uropathy, unspecified (principal); R65.21 Severe sepsis with septic shock; N17.9 Acute kidney failure, unspecified; I82.611 Acute embolism and thrombosis of superficial veins of right upper extremity; E16.2 Hypoglycemia, unspecified; D72.829 Elevated white blood cell count, unspecified; D64.9 Anemia, unspecified; C61 Malignant neoplasm of prostate; N39.0 Urinary tract infection, site not specified